=== PATIENT | female | born 1970 | race Caucasian/White ===

== ENCOUNTER 2019-08-15 10:11 | Outpatient (CLI) | payer BC, SELFPAY ==
--- NOTE | 2019-08-15 10:30 | MM_ITS ---
WS: [id number] BILATERAL DIGITAL SCREENING MAMMOGRAM WITH CAD CLINICAL INFORMATION: screening HISTORY: Screening mammogram. No current complaints. COMPARISON: . TECHNIQUE: Bilateral CC and MLO. FINDINGS: History of breast reduction. The breast are composed of extremely dense tissue, which can limit the detection of small underlying mass lesions. Dense nodular breast tissue bilaterally appears stable. No suspicious focal mass, asymm etry, calcifications, or architectural distortion. No evidence of malignancy. Benign punctate calcifi cations. MM/[place] [id number] IMPRESSION: BI-RADS: 2-Benign FOLLOW UP: 1 Year Follow-up Recommend return to annual screening mammography.
== END 2019-08-15 10:12 | disposition home or self-care (01) ==
PROVIDERS: PCP Family Medicine; Visit Provider Family Medicine
DX: Z12.31 Encounter for screening mammogram for malignant neoplasm of breast (principal)
CPT/HCPCS: 77067

== ENCOUNTER 2021-11-25 11:32 | Outpatient (CLI) | payer OTHER, SELFPAY ==
--- NOTE | 2021-11-25 11:51 | MM_ITS ---
WS: [id number] BILATERAL SCREENING DIGITAL TOMOSYNTHESIS MAMMOGRAM WITH CAD HISTORY: SCREENING COMPARISON: 08/15/2019 and 04/20/2017 Bilateral CC and MLO views with tomosynthesis and synthetic mammography submitted. Computer aided det ection analyzed. Breast composition: The breasts are extremely dense, which lowers the sensitivity of mammography. No suspicious masses, microcalcifications or architectural distortion. Architectural distortion from jeremías or mammoplasty. No suspicious mass or calcification. No interval change in appearance of the breasts. MM/[place] [id number] IMPRESSION: BI-RADS: 2-Benign FOLLOW UP: 1 Year Follow-up
== END 2021-11-25 11:33 | disposition home or self-care (01) ==
PROVIDERS: PCP Family Medicine; Visit Provider Family Medicine
DX: Z12.31 Encounter for screening mammogram for malignant neoplasm of breast (principal)
CPT/HCPCS: 77063; 77067

== ENCOUNTER → 2021-11-30 10:00 | Outpatient (BNVA) | payer OTHER, SELFPAY | PROVIDERS: PCP Family Medicine; Visit Provider Family Medicine | DX: Z00.00 Encounter for general adult medical examination without abnormal findings (principal); N93.8 Other specified abnormal uterine and vaginal bleeding | CPT/HCPCS: 80053; 85025 ==

== ENCOUNTER 2022-12-05 09:12 | Outpatient (CLI) | payer OTHER, SELFPAY ==
--- NOTE | 2022-12-05 09:16 | MM_ITS ---
WS: [id number] BILATERAL 3D TOMOSYNTHESIS DIGITAL SCREENING MAMMOGRAPHY WITH CAD CLINICAL INFORMATION: SCREENING HISTORY: Screening mammogram. No current complaints. COMPARISON: 2021 TECHNIQUE: Bilateral CC and MLO views. FINDINGS: The breasts are composed of extremely dense tissue which can limit the detection of small underlying mass lesions. No suspicious mass, asymmetry, calcifications, or architectural distortion. No evidence of malignancy. Architectural distortion from prior mammoplasty. Incidental punctate calcifications s imilar to previous. IMPRESSION: MM/[place] [id number] BI-RADS: 2-Benign FOLLOW UP: 1 Year Follow-up Recommend return to annual screening mammography.
== END 2022-12-05 09:13 | disposition home or self-care (01) ==
LOC: RAD 09:12
PROVIDERS: PCP Family Medicine; Visit Provider Family Medicine
DX: Z12.31 Encounter for screening mammogram for malignant neoplasm of breast (principal)
CPT/HCPCS: 77063; 77067

== ENCOUNTER 2023-12-13 14:25 | Outpatient (CLI) | payer OTHER, SELFPAY ==
--- NOTE | 2023-12-13 14:30 | USCV_ITS ---
SolisStefanie Age: 52 Gender: F : 1970 Exam Date: 12/13/2023 14:44 Ordering Phys: Ty Luna MD Technologist: Exam Location: [facility] – [place] Indication: dizzy Risk Factors: Previous Vascular Surgery: Right Brachial BP: / Left Brachial BP: / Right Left Velocity (cm/s) Spectral Plaque Velocity (cm/s) Spectral Plaque Syst/Diast Broadening Syst/Diast Broadening 51.60/ 14.10 Prox CCA 58.10 / 13.10 49.80/ 11.40 Mid CCA 45.00 / 14.90 29.60/ 7.80 Distal CCA 46.00 / 12.00 44.10/ 14.90 Prox ICA 46.90 / 18.70 43.10/ 19.60 Mid ICA 57.20 / 22.40 44.10/ 12.10 Distal ICA 65.70 / 25.30 140.40 ECA 123.00 1.50 ICA/CCA 1.10 Antegrade Vertebral Antegrade 45.00/ 14.90 cm/s 33.70/ 13.10 cm/s Tri Subclavian Tri 70.40 78.80 CONCLUSIONS Right ICA stenosis <50%. Left ICA stenosis <50%. Mild atheromatous plaque right carotid bulb/ICA. Mild atheromatous plaque left carotid bulb/ICA. Intimal thickening in the common carotid arteries and internal carotid arteries bilaterally. Normal antegrade Doppler flow noted in the right vertebral artery. Normal antegrade Doppler flow noted in the left vertebral artery. Demetrio Houser MD (Electronically Signed) Final Date: 13 December 2023 15:18 S
== END 2023-12-13 14:26 | disposition home or self-care (01) ==
LOC: RAD 14:27
PROVIDERS: PCP Family Medicine; Visit Provider Specialist
DX: I65.23 Occlusion and stenosis of bilateral carotid arteries (principal); H93.A3 Pulsatile tinnitus, bilateral
CPT/HCPCS: 93880

== ENCOUNTER 2023-12-25 08:59 | Outpatient (CLI) | payer OTHER, SELFPAY ==
--- NOTE | 2023-12-25 09:04 | MR_ITS ---
WS: [id number] MR VENOGRAPHY HEAD 3-D noncontrast imaging performed through the cerebral veins. All imaging is reviewed. HISTORY: MIXED CONDUCTIVE SENSORINEURAL HEARING LOSS COMPARISON: None available. Good demonstration of the dural venous sinuses and cerebral veins. Mild loss of signal in the transve rse and sigmoid sinuses is an artifact. There are no filling defects to suggest acute or chronic thro mbus. Normal sagittal sinus. Superior sagittal sinus, straight sinus and transverse sinuses are all patent with no significant thr ombus. MR/[place] [id number] IMPRESSION: Normal MR venogram cerebral veins.
--- NOTE | 2023-12-25 09:04 | MR_ITS ---
WS: [id number] MRI BRAIN WITH HIGH-RESOLUTION IMAGING THROUGH THE INTERNAL AUDITORY CANALS WITHOUT AND WITH CONTRAST HISTORY: PULSATILE TINNITUS,UNSPECIFIED EAR COMPARISON: None available. TECHNIQUE: Multiplanar, multisequence imaging is performed through the brain. Additional 3 mm imaging performed in multiple planes through the internal auditory canal. Postcontrast imaging with 13 ml's of MultiHance. No acute intracranial hemorrhage, midline shift, edema or mass effect. There are a few tiny foci of increased T2 and FLAIR signal hyperintensity within the subcortical whit e matter. No prior infarct. No significant hippocampal atrophy. Ventricles and extra-axial spaces are normal. No inferior displacement of cerebellar tonsils. Clivus and pituitary gland are normal. Internal and external auditory canals: Unremarkable. Cranial nerves VII and VIII complexes: Unremarkable. No enhancement or mass. Cerebellopontine angles: Normal. Paranasal sinuses: Normal. Mastoid air cells: Normal. Calvarium and scalp: Normal. Visualized [place] and dural venous sinuses demonstrate no abnormality. MR/MR iac's w con [id number] IMPRESSION: 1. No acute or prior infarct. 2. Minimal small vessel ischemic type changes in the subcortical white matter. 3. No mass or abnormal signal along the internal auditory canals. Normal cereb ellopontine angles.
--- NOTE | 2023-12-25 09:04 | MR_ITS ---
WS: [id number] MRA ANGIOGRAPHY [place] HISTORY: MIXED CONDUCTIVE SENSORINEURAL HEARING LOSS COMPARISON: None available. TECHNIQUE: 3-D MR angiography is performed of the [place]. All images are reviewed including source images. Distal vertebral and basilar arteries are intact with no significant stenosis or plaque. Posterior ce rebral arteries are normal course and caliber. Posterior communicating arteries are both patent. Intracranial portion of the internal carotid arteries are normal course and caliber. No significant a therosclerosis, stenosis or aneurysm identified. Middle and anterior cerebral arteries are both paten t with no significant disease. Anterior communicating artery is also normal. MR/MR angio head wo con [id number] IMPRESSION: Normal MRA [place].
[2023-12-25] MEDS: gadobenate dimeglumine 20 mL vial 13 ML IV (10:21)
== END 2023-12-25 09:00 | disposition home or self-care (01) ==
PROVIDERS: PCP Family Medicine; Visit Provider Specialist
DX: H93.A9 Pulsatile tinnitus, unspecified ear (principal); H90.6 Mixed conductive and sensorineural hearing loss, bilateral
CPT/HCPCS: 70544; 70552

== ENCOUNTER → 2024-04-14 15:03 | Outpatient (BNVA) | payer OTHER, SELFPAY | PROVIDERS: PCP Family Medicine; Visit Provider Family Medicine | DX: E28.39 Other primary ovarian failure (principal) | CPT/HCPCS: 80053; 85025 ==

== ENCOUNTER 2024-05-26 10:44 | Outpatient (CLI) | payer OTHER, SELFPAY ==
--- NOTE | 2024-05-26 10:50 | MM_ITS ---
WS: [id number] BILATERAL 3D TOMOSYNTHESIS DIGITAL SCREENING MAMMOGRAM WITH CAD CLINICAL INFORMATION: SCREEN HISTORY: Screening mammogram. No current complaints. COMPARISON: 2022 TECHNIQUE: Bilateral CC and MLO. FINDINGS: History of breast reduction The breast are composed of extremely dense tissue, which can limit the detection of small underlying mass lesions. No suspicious focal mass, asymmetry, calcifications, or architectural distortion. No evidence of malignancy. Incidental punctate calcifications. Architectural distortion from prior mammopl asty MM/MM scr tomosynthesis [id number] IMPRESSION: DENSITY: The breasts are extremely dense, which lowers the sensitivity of mammo graphy. BI-RADS: 2 - Benign FOLLOW UP: 1 Year Follow-up Recommend return to annual screening mammography.
== END 2024-05-26 10:45 | disposition home or self-care (01) ==
PROVIDERS: PCP Family Medicine; Visit Provider Family Medicine
DX: Z12.31 Encounter for screening mammogram for malignant neoplasm of breast (principal); R92.343 Mammographic extreme density, bilateral breasts; R92.1 Mammographic calcification found on diagnostic imaging of breast; N64.89 Other specified disorders of breast
CPT/HCPCS: 77063; 77067